=== PATIENT | male | born 1985 | race Caucasian/White ===

== ENCOUNTER 2017-02-06 00:23 | Emergency (ER) | payer SELFPAY ==
[2017-02-06 00:25] VITALS: BP 124/67; PULSE 112; RESP 18; TEMP 98.4; O2SAT 100
== END 2017-02-06 00:38 | disposition left against medical advice (07) ==
LOC: NED 00:23
DX: Z00.8 Encounter for other general examination (principal); Z53.21 Procedure and treatment not carried out due to patient leaving prior to being seen by health care provider
CPT/HCPCS: 99281

== ENCOUNTER 2017-02-20 19:51 | Emergency (ER) | payer SELFPAY ==
[2017-02-20 20:03] VITALS: BP 135/95; PULSE 111; RESP 16; TEMP 98.9; O2SAT 100
[2017-02-20] MEDS ORDERED: SODIUM CHLOR 0.9% 1000 ML INJ 1,000 ML IV SCH (20:03)
--- NOTE | 2017-02-20 20:07 | PD ---
HPI Chief Complaint: Alcohol/Drug Intoxication Time Seen by Provider: 20:02 Travel History International Travel<30 days: No Contact w/Intl Traveler<30days: No History of Present Illness HPI Patient comes emergency Department after being found intoxicated in a [employer] parking lot. Patient states he drinks approximately a liter of vodka a day. Patient is wanting detox. Patient states he is gone through detox 4 times last time was 8 months ago and he keeps relapsing. Patient only medical complaint is he states his pancreas hurts and feels similar to previous episodes of pancreatitis in the past. Denies anything making symptoms better or worse. Reports pain is in epigastric region without radiation. Denies any fevers, chest pain, shortness of breath, loss or change in bowel or bladder, vomiting, or headaches. Patient does report nausea. PFSH Past Medical History Autoimmune Disease: No Anxiety: No Depression: Yes Heart Rhythm Problems: Yes (SINUS ARRHYTHMIA, WPW PER PT) Chemotherapy: No COPD: Yes Cerebrovascular Accident: Yes Diabetes: No Diminished Hearing: No Endocrine: No Genitourinary: Yes Hepatitis: Yes (HEP C) Heparin Induced Thrombocytopen: No Hypertension: No Immune Disorder: No Implanted Vascular Access Dvce: Yes Kidney Stones: Yes Musculoskeletal: No Neurologic: Yes Reproductive: No Respiratory: Yes (COPD) Migraines: Yes Radiation Therapy: No Renal Failure: No Seizures: Yes (ETOH WITHDRAWL) Sickle Cell Disease: No Past Surgical History AICD: No Cardiac Surgery: No Genitourinary Surgery: Yes (VARICOCELE) Gynecologic Surgery: Yes (TESTICLES) Joint Replacement: No Neurologic Surgery: No Pacemaker: No Tonsillectomy: Yes Other Surgery: Yes (ANAL ABSCESS) Social History Alcohol Use: Yes (DAILY USE PER PT) Tobacco Use: Yes (1-2 BLACK AND MILDS DAILY) Substance Use: Yes (ALCOHOL, COCAINE, MARIJUANA PER PT) Allergies-Medications (Allergen,Severity, Reaction): Coded Allergies: bee venom protein (honey bee) (Unverified Allergy, Severe, Swelling, ) hydrocodone (Unverified Allergy, Severe, RASH, 11/12/16) promethazine (Unverified Adverse Reaction, Severe, HALLUCINATIONS, 11/12/16 ) Reported Meds & Prescriptions Reported Meds & Active Scripts Active Prilosec (Omeprazole Magnesium) 20 Mg Tab 20 Mg PO DAILY Reported Keppra (Levetiracetam) 500 Mg Tab 500 Mg PO BID Neurontin (Gabapentin) 400 Mg Cap 400 Mg PO BID Review of Systems Except as stated in HPI: all other systems reviewed are Neg Physical Exam Narrative GENERAL: Well-developed, well nourished, in no acute distress, and non-ill appearing. SKIN: Focused skin assessment warm and dry. HEAD: Atraumatic. Normocephalic. EYES: Pupils equal and round. EOMI. No scleral icterus. No injection or drainage. ENT: No nasal bleeding or discharge. Mucous membranes pink and moist, but lips are dry. NECK: Trachea midline. Supple. No nuclear rigidity. CARDIOVASCULAR: Regular rate and rhythm. No murmur appreciated. RESPIRATORY: No accessory muscle use. No respiratory distress. Clear to auscultation. Breath sounds equal bilaterally. GASTROINTESTINAL: Abdomen soft, nondistended, and no guarding. Hepatic and splenic margins not palpable. Normal bowel sounds 4. No pulsatile mass. Patient reports tenderness to palpation epigastric region. MUSCULOSKELETAL: No obvious deformities. No clubbing. No cyanosis. No edema. Full range of motion. NEUROLOGICAL: Awake and alert. No obvious cranial nerve deficits. Motor grossly within normal limits. Normal speech. PSYCHIATRIC: Appropriate mood and affect; insight and judgment normal. Data Data Last Documented VS Vital Signs Date Time Temp Pulse Resp B/P (MAP) Pulse Ox O2 Delivery O2 Flow Rate FiO2 02/21/17 16:29 92 16 98 02/21/17 11:27 Room Air 02/21/17 03:10 2.00 02/20/17 20:03 98.9 Orders Orders Complete Blood Count With Diff (02/20/17 20:03) Comprehensive Metabolic Panel (02/20/17 20:03) Lipase (02/20/17 20:03) Iv Access Insert/Monitor (02/20/17 20:03) Ecg Monitoring (02/20/17 20:03) Oximetry (02/20/17 20:03) Ondansetron Inj (Zofran Inj) (02/20/17 20:15) Sodium Chlor 0.9% 1000 Ml Inj (Ns 1000 M (02/20/17 20:03) Sodium Chloride 0.9% Flush (Ns Flush) (02/20/17 20:15) Drug Screen, Random Urine (02/20/17 20:03) Alcohol (Ethanol) (02/20/17 20:03) Famotidine Inj (Pepcid Inj) (02/20/17 20:15) Pantoprazole Inj (Protonix Inj) (02/20/17 21:30) Al-Mag Hy-Si 40-40-4 Mg/Ml Liq (Mag-Al P (02/20/17 21:30) Lidocaine 2% Viscous (Xylocaine 2% Visco (02/20/17 21:30) Sodium Chlor 0.9% 1000 Ml Inj (Ns 1000 M (02/20/17 22:00) Alcohol Withdrawal Asmt-Ciwa ONCE (02/20/17 23:40) Flumazenil Inj (Romazicon Inj) (02/20/17 23:45) Lorazepam (Ativan) (02/20/17 23:45) Lorazepam Inj (Ativan Inj) (02/20/17 23:45) Lorazepam (Ativan) (02/20/17 23:45) Lorazepam Inj (Ativan Inj) (02/20/17 23:45) Lorazepam Inj (Ativan Inj) (02/20/17 23:45) Lorazepam Inj (Ativan Inj) (02/20/17 23:45) Sodium Chlor 0.9% 1000 Ml Inj (Ns 1000 M (02/20/17 23:45) Ondansetron Inj (Zofran Inj) (02/21/17 05:45) Ondansetron Inj (Zofran Inj) (02/21/17 11:30) Ed Discharge Order (02/21/17 16:32) Labs Laboratory Tests Test 02/20/17 20:17 02/20/17 22:18 White Blood Count 6.1 TH/MM3 Red Blood Count 5.03 MIL/MM3 Hemoglobin 15.2 GM/DL Hematocrit 45.7 % Mean Corpuscular Volume 90.9 FL Mean Corpuscular Hemoglobin 30.3 PG Mean Corpuscular Hemoglobin Concent 33.3 % Red Cell Distribution Width 13.8 % Platelet Count 312 TH/MM3 Mean Platelet Volume 7.6 FL Neutrophils (%) (Auto) 40.9 % Lymphocytes (%) (Auto) 49.6 % Monocytes (%) (Auto) 7.1 % Eosinophils (%) (Auto) 1.1 % Basophils (%) (Auto) 1.3 % Neutrophils # (Auto) 2.5 TH/MM3 Lymphocytes # (Auto) 3.0 TH/MM3 Monocytes # (Auto) 0.4 TH/MM3 Eosinophils # (Auto) 0.1 TH/MM3 Basophils # (Auto) 0.1 TH/MM3 CBC Comment DIFF FINAL Differential Comment Blood Urea Nitrogen 8 MG/DL Creatinine 0.84 MG/DL Random Glucose 125 MG/DL Total Protein 8.8 GM/DL Albumin 4.5 GM/DL Calcium Level 9.0 MG/DL Alkaline Phosphatase 97 U/L Aspartate Amino Transf (AST/SGOT) 56 U/L Alanine Aminotransferase (ALT/SGPT) 56 U/L Total Bilirubin 0.2 MG/DL Sodium Level 142 MEQ/L Potassium Level 3.8 MEQ/L Chloride Level 106 MEQ/L Carbon Dioxide Level 25.1 MEQ/L Anion Gap 11 MEQ/L Estimat Glomerular Filtration Rate 108 ML/MIN Lipase 813 U/L Ethyl Alcohol Level 456 MG/DL Urine Opiates Screen NEG Urine Barbiturates Screen POS Urine Amphetamines Screen NEG Urine Benzodiazepines Screen NEG Urine Cocaine Screen NEG Urine Cannabinoids Screen NEG MDM Medical Decision Making Medical Screen Exam Complete: Yes Emergency Medical Condition: Yes Differential Diagnosis Pancreatitis, gastritis, metabolic disturbance, alcohol intoxication, alcohol abuse, alcohol withdrawal Narrative Course Patient's exam. Initial laboratory studies were ordered. Patient was given IV fluid for hydration and IV Zofran for nausea. Patient was placed on CIWA protocol for withdrawal. RN contacted [facility] who states they will hold a bed for the patient for detox is medically cleared. Patient's labs reviewed shows an elevated lipase is likely from his chronic alcohol abuse. Patient given a total of total of 3 L IV fluid, IV Protonix, IV Pepcid, a GI cocktail improved his symptoms. Epigastric pain is most likely from gastritis due to his alcohol abuse. Patient was transported from emergency department to [facility] for detox. Diagnosis Primary Impression: Alcohol abuse with intoxication Additional Impression: Gastritis due to alcohol without hemorrhage Qualified Codes: K29.20 - Alcoholic gastritis without bleeding Referrals: [facility] Patient Instructions: Abuse of Alcohol (ED), General Instructions Additional Instructions: Follow-up with your primary care physician and/or [facility] for detox. Stop drinking. Take all medication as prescribed. Return to the emergency department if symptoms get worse. Med/Other Pt SpecificInfo: Prescription(s) given Scripts Omeprazole Magnesium (Prilosec) 20 Mg Tab 20 MG PO DAILY, #14 Prov: Shine Tavares MD 02/20/17 Disposition: 01 DISCHARGE HOME Condition: Stable Carl Rondon Feb 20, 2017 20:07
[2017-02-20] MEDS ORDERED: FAMOTIDINE 20 MG/2 ML VIAL IV PUSH ONE (20:15)
[2017-02-20] MEDS ORDERED: ONDANSETRON HCL 4 MG/2 ML VIAL IVP ONE (20:15)
[2017-02-20] MEDS ORDERED: SODIUM CHLORIDE 0.9% FLUSH 10 ML FLUSH IV FLUSH PRN (20:15)
[2017-02-20 20:25] VITALS: O2SAT 100
[2017-02-20 20:31] LABS: AUTOMATED NEUTROPHIL # 2.5 TH/MM3 (1.8-7.7); BASOPHIL # 0.1 TH/MM3 (0-0.2); BASOPHIL % 1.3 % (0.0-2.0); EOSINOPHIL # 0.1 TH/MM3 (0-0.4); EOSINOPHIL % 1.1 % (0.0-4.0); HEMATOCRIT 45.7 % (39.0-51.0); HEMO FLAGS DIFF FINAL; LYMPH % 49.6 % (9.0-44.0); MEAN CELL VOLUME 90.9 FL (80.0-100.0); MEAN CORPUSCULAR HEMOGLOBIN 30.3 PG (27.0-34.0); MEAN CORPUSCULAR HGB CONC 33.3 % (32.0-36.0); MONO % 7.1 % (0.0-8.0); NEUT % 40.9 % (16.0-70.0); PLATELET COUNT 312 TH/MM3 (150-450); RED BLOOD COUNT 5.03 MIL/MM3 (4.50-5.90); RED CELL DISTRIBUTION WIDTH 13.8 % (11.6-17.2); WHITE BLOOD COUNT 6.1 TH/MM3 (4.0-11.0)
[2017-02-20 20:49] LABS: ANION GAP 11 MEQ/L (5-15)
[2017-02-20 21:14] LABS: ALKALINE PHOSPHATASE 97 U/L (45-117); ALT (GPT) 56 U/L (12-78); AST (GOT) 56 U/L (15-37); BICARBONATE 25.1 MEQ/L (21.0-32.0); BLOOD UREA NITROGEN 8 MG/DL (7-18); CHLORIDE 106 MEQ/L (98-107); GLOMERULAR FILTRATION RATE 108 ML/MIN (>89); POTASSIUM 3.8 MEQ/L (3.5-5.1); SODIUM (NA) 142 MEQ/L (136-145); TOTAL BILIRUBIN ADULT 0.2 MG/DL (0.2-1.0)
[2017-02-20 21:15] LABS: ALCOHOL 456 MG/DL (0-5)
[2017-02-20] MEDS ORDERED: LIDOCAINE VISCOUS 2% SOLN 15 ML UDC PO ONE (21:30)
[2017-02-20] MEDS ORDERED: PANTOPRAZOLE SODIUM 40 MG VIAL IVP ONE (21:30)
[2017-02-20] MEDS ORDERED: ALUMINUM/MAGNESIUM/SIMETH 30 ML CUP PO ONE (21:30)
[2017-02-20] MEDS ORDERED: SODIUM CHLOR 0.9% 1000 ML INJ 1,000 ML IV ONE ×2 (22:00→23:45)
[2017-02-20] MEDS ORDERED: PRIL20TA2 PO (22:01)
[2017-02-20] MEDS ORDERED: FLUMAZENIL 0.5 MG/5 ML VIAL IV PUSH PRN (23:45)
[2017-02-20] MEDS ORDERED: LORazepam 2 MG TAB PO PRN (23:45)
[2017-02-20] MEDS ORDERED: LORazepam 2 MG/ML VIAL IV PUSH PRN ×3 (23:45)
[2017-02-20] MEDS ORDERED: LORazepam 1 MG TAB PO PRN (23:45)
[2017-02-20 23:48] VITALS: BP 157/92; PULSE 102; RESP 20; O2SAT 100
[2017-02-20] MEDS ORDERED: LEVE500 PO (23:50)
[2017-02-20] MEDS ORDERED: NEUR400C PO (23:50)
[2017-02-21] VITALS (7 sets, daily range): BP systolic 110–151; BP diastolic 55–83; PULSE 95–109; RESP 16–20; O2SAT 90–98
[2017-02-21] MEDS ORDERED: ONDANSETRON HCL 4 MG/2 ML VIAL IV PUSH ONE ×2 (05:45→11:30)
[2017-02-21] MEDS: LORazepam 2 MG/ML VIAL IV PUSH PRN ×3 (05:52→11:20)
== END 2017-02-21 16:50 | disposition home or self-care (01) ==
LOC: NEPD 19:51
DX: F10.129 Alcohol abuse with intoxication, unspecified (principal); K29.20 Alcoholic gastritis without bleeding; J44.9 Chronic obstructive pulmonary disease, unspecified; F32.9 Major depressive disorder, single episode, unspecified; R56.9 Unspecified convulsions; Z87.442 Personal history of urinary calculi; Z86.19 Personal history of other infectious and parasitic diseases; Z86.73 Personal history of transient ischemic attack (TIA), and cerebral infarction without residual deficits; Z79.899 Other long term (current) drug therapy
CPT/HCPCS: 80053; 80307; 83690; 85025; 96361; 96374; 96375; 96376; 99285; C9113; J2060; J2405; J7030

== ENCOUNTER 2017-05-14 15:59 | Emergency (ER) | payer SELFPAY ==
[~2017-05-14] VITALS: Ht 185.4 cm; Wt 70.0 kg
[~2017-05-14 15:59] MED LIST: LEVE500 PO; NEUR400C PO; PRIL20TA2 PO
[2017-05-14 16:01] VITALS: BP 139/94; PULSE 98; RESP 16; TEMP 98.8; O2SAT 99
--- NOTE | 2017-05-14 16:58 | RADRPT ---
EXAM DATE/TIME: 05/14/2017 16:46 [facility] COMPARISON: No previous studies available for comparison. INDICATIONS : Left wrist pain, injured hitting punching bag MEDICAL HISTORY : Cerebrovascular disease. Chronic obstructive pulmonary disease. Emphysema SURGICAL HISTORY : Tonsillectomy. Testicle variocele. Anal abscess surgery ENCOUNTER: Initial ACUITY: 2 days PAIN SCORE: 8/10 LOCATION: Left Wrist FINDINGS: Three view examination of the left wrist demonstrates no soft tissue swelling, dislocation, or fractu re. The carpal bones are in normal alignment. The joint spaces are maintained. Bony mineralization is normal. CONCLUSION: Unremarkable examination of the left wrist. Mario Nair MD on May 14, 2017 at 16:55 Board Certified Radiologist. This report was verified electronically.
[2017-05-14] MEDS ORDERED: DICL75TA PO (17:24)
--- NOTE | 2017-05-14 17:30 | PD ---
HPI Chief Complaint: Injury Time Seen by Provider: 17:17 Travel History International Travel<30 days: No Contact w/Intl Traveler<30days: No Traveled to known affect area: No History of Present Illness HPI 31-year-old male here for evaluation of left wrist pain. He reports that yesterday he punched a punching bag and today he has pain in his left wrist. Pain is an aching pain, constant, worse with movement. Denies any other injuries and has no other complaints at this time. PFSH Past Medical History Autoimmune Disease: No Anxiety: No Depression: Yes Heart Rhythm Problems: Yes (SINUS ARRHYTHMIA, WPW PER PT) Chemotherapy: No COPD: Yes Cerebrovascular Accident: Yes Diabetes: No Diminished Hearing: No Endocrine: No Genitourinary: Yes Hepatitis: Yes (HEP C) Heparin Induced Thrombocytopen: No Hypertension: No Immune Disorder: No Implanted Vascular Access Dvce: Yes Kidney Stones: Yes Musculoskeletal: No Neurologic: Yes Reproductive: No Respiratory: Yes (COPD) Migraines: Yes Radiation Therapy: No Renal Failure: No Seizures: Yes (ETOH WITHDRAWL) Sickle Cell Disease: No Past Surgical History AICD: No Body Medical Devices: JEWELRY PIERCING CHIN AREA BELOW R LOWER LIP Cardiac Surgery: No Genitourinary Surgery: Yes (VARICOCELE) Gynecologic Surgery: Yes (TESTICLES) Joint Replacement: No Neurologic Surgery: No Pacemaker: No Tonsillectomy: Yes Other Surgery: Yes (ANAL ABSCESS) Social History Alcohol Use: Yes (DAILY USE PER PT) Tobacco Use: Yes (1-2 BLACK AND MILDS DAILY) Substance Use: Yes (ALCOHOL, COCAINE, MARIJUANA PER PT) Allergies-Medications (Allergen,Severity, Reaction): Coded Allergies: bee venom protein (honey bee) (Unverified Allergy, Severe, Swelling, ) hydrocodone (Unverified Allergy, Severe, RASH, 05/14/17) promethazine (Unverified Adverse Reaction, Severe, HALLUCINATIONS, 05/14/17 ) Reported Meds & Prescriptions Reported Meds & Active Scripts Active Diclofenac Sodium DR (Diclofenac Sodium) 75 Mg Tabdr 75 Mg PO BID 14 Days Prilosec (Omeprazole Magnesium) 20 Mg Tab 20 Mg PO DAILY Reported Keppra (Levetiracetam) 500 Mg Tab 500 Mg PO BID Neurontin (Gabapentin) 400 Mg Cap 400 Mg PO BID Review of Systems Musculoskeletal: Positive: Limited ROM, Pain Skin: Positive Other (denies open wounds) Physical Exam Narrative GENERAL: Well-nourished male in no acute distress SKIN: Warm and dry. CARDIOVASCULAR: Regular rate and rhythm. No murmur appreciated. RESPIRATORY: No accessory muscle use. Clear to auscultation. Breath sounds equal bilaterally. Extremities: Generalized mild tenderness to palpation of left wrist. There is no bruising or soft tissue swelling. The patient has pain with flexion and extension of the left wrist but range of motion is preserved. Distal sensation , pulses intact. Data Data Last Documented VS Vital Signs Date Time Temp Pulse Resp B/P (MAP) Pulse Ox O2 Delivery O2 Flow Rate FiO2 05/14/17 16:01 98.8 98 16 139/94 (109) 99 Orders Orders Wrist, Complete (Aru2czr) (05/14/17 ) Splint Or Brace Apply/Monitor (05/14/17 17:24) Ed Discharge Order (05/14/17 17:24) [facility] Medical Decision Making Medical Screen Exam Complete: Yes Emergency Medical Condition: Yes Medical Record Reviewed: Yes Differential Diagnosis Sprain, fracture, contusion, dislocation Narrative Course X-ray imaging is negative. The patient has a wrist sprain. He will be discharged with a Velcro wrist splint. Diagnosis Primary Impression: Left wrist sprain Additional Instructions: Medication as needed, take with meals. Rest, avoid strenuous activity, splint as needed. Follow-up with primary care physician and return for any emergent medical conditions. Med/Other Pt SpecificInfo: Prescription(s) given, Orthopedic Instructions Scripts Diclofenac Sodium DR (Diclofenac Sodium DR) 75 Mg Tabdr 75 MG PO BID for 14 Days, #28 TAB 0 Refills Prov: Jero Jarquin MD 05/14/17 Disposition: 01 DISCHARGE HOME Condition: Stable Marvin Ellington May 14, 2017 17:29
== END 2017-05-14 17:43 | disposition home or self-care (01) ==
LOC: NEPK 15:59
DX: S63.502A Unspecified sprain of left wrist, initial encounter (principal); J44.9 Chronic obstructive pulmonary disease, unspecified; B19.20 Unspecified viral hepatitis C without hepatic coma; F12.90 Cannabis use, unspecified, uncomplicated; F14.90 Cocaine use, unspecified, uncomplicated; W21.89XA Striking against or struck by other sports equipment, initial encounter
CPT/HCPCS: 73110; 99283; L3908

== ENCOUNTER 2017-08-05 16:06 | Emergency (ER) | payer SELFPAY ==
[~2017-08-05] VITALS: Ht 185.4 cm; Wt 65.0 kg
[~2017-08-05 16:06] MED LIST changes: +DICL75TA PO
[2017-08-05 16:10] VITALS: BP 123/76; PULSE 106; RESP 18; TEMP 98.4; O2SAT 96
[2017-08-05 16:18] VITALS: O2SAT 97
--- NOTE | 2017-08-05 16:25 | PD ---
HPI Chief Complaint: OD/ Ingestion Time Seen by Provider: 16:15 Travel History International Travel<30 days: No Contact w/Intl Traveler<30days: No Traveled to known affect area: No History of Present Illness HPI 31-year-old male complains of generalized malaise and weakness. Patient was found unresponsive outside. Patient states that he snorted methadone and injected heroin this afternoon. Patient was found unresponsive. EMS was called. Patient was given Narcan 1.5 mg IV by EMS. Patient woke up. Patient is feeling better now. Patient denies any headache. Patient denies any chest pain or shortness of breath. Patient denies abdominal pain. Patient denies any focal weakness or numbness of the extremity. Patient denies any recent injury. Patient denies any fever chills. Patient denies any back pain. Patient states he drinks alcohol occasionally. Patient denies any routine medications. Patient denies any medical problem. PFSH Past Medical History Autoimmune Disease: No Anxiety: No Depression: Yes Heart Rhythm Problems: Yes (SINUS ARRHYTHMIA, WPW PER PT) Chemotherapy: No COPD: Yes Cerebrovascular Accident: Yes Diabetes: No Diminished Hearing: No Endocrine: No Genitourinary: Yes Hepatitis: Yes (HEP C) Heparin Induced Thrombocytopen: No Hypertension: No Immune Disorder: No Implanted Vascular Access Dvce: Yes Kidney Stones: Yes Musculoskeletal: No Neurologic: Yes Reproductive: No Respiratory: Yes (COPD) Migraines: Yes Radiation Therapy: No Renal Failure: No Seizures: Yes (ETOH WITHDRAWL) Sickle Cell Disease: No Past Surgical History AICD: No Body Medical Devices: JEWELRY PIERCING CHIN AREA BELOW R LOWER LIP Cardiac Surgery: No Genitourinary Surgery: Yes (VARICOCELE) Gynecologic Surgery: Yes (TESTICLES) Joint Replacement: No Neurologic Surgery: No Pacemaker: No Tonsillectomy: Yes Other Surgery: Yes (ANAL ABSCESS) Social History Alcohol Use: Yes (DAILY USE PER PT) Tobacco Use: Yes (1-2 BLACK AND MILDS DAILY) Substance Use: Yes (ALCOHOL, COCAINE, MARIJUANA PER PT) Allergies-Medications (Allergen,Severity, Reaction): Coded Allergies: bee venom protein (honey bee) (Unverified Allergy, Severe, Swelling, ) hydrocodone (Unverified Allergy, Severe, RASH, 08/05/17) promethazine (Unverified Adverse Reaction, Severe, HALLUCINATIONS, 08/05/17) Reported Meds & Prescriptions Reported Meds & Active Scripts Active Diclofenac Sodium DR (Diclofenac Sodium) 75 Mg Tabdr 75 Mg PO BID 14 Days Prilosec (Omeprazole Magnesium) 20 Mg Tab 20 Mg PO DAILY Reported Keppra (Levetiracetam) 500 Mg Tab 500 Mg PO BID Neurontin (Gabapentin) 400 Mg Cap 400 Mg PO BID Review of Systems General / Constitutional: No: Fever Eyes: No: Visual changes HENT: No: Headaches Cardiovascular: No: Chest Pain or Discomfort Respiratory: No: Shortness of Breath Gastrointestinal: No: Abdominal Pain Genitourinary: No: Dysuria Musculoskeletal: No: Pain Skin: No Rash Neurologic: No: Weakness Psychiatric: No: Depression Endocrine: No: Polydipsia Hematologic/Lymphatic: No: Easy Bruising Physical Exam Narrative GENERAL: Well-nourished, well-developed patient. SKIN: Focused skin assessment warm/dry. HEAD: Normocephalic. EYES: No scleral icterus. No injection or drainage. NECK: Supple, trachea midline. No JVD or lymphadenopathy. CARDIOVASCULAR: Regular rate and rhythm without murmurs, gallops, or rubs. RESPIRATORY: Breath sounds equal bilaterally. No accessory muscle use. GASTROINTESTINAL: Abdomen soft, non-tender, nondistended. MUSCULOSKELETAL: No cyanosis, or edema. BACK: Nontender without obvious deformity. No CVA tenderness. Neurologic exam: Patient is awake and alert oriented 3. No obvious focal neurologic deficit. Data Data Last Documented VS Vital Signs Date Time Temp Pulse Resp B/P (MAP) Pulse Ox O2 Delivery O2 Flow Rate FiO2 08/05/17 16:18 97 Room Air 08/05/17 16:15 103 98 08/05/17 16:10 98.4 123/76 (92) Orders Orders Electrocardiogram (08/05/17 16:16) Complete Blood Count With Diff (08/05/17 16:16) Comprehensive Metabolic Panel (08/05/17 16:16) Creatine Kinase (Cpk) (08/05/17 16:16) Troponin I (08/05/17 16:16) Chest, Single Ap (08/05/17 16:16) Iv Access Insert/Monitor (08/05/17 16:16) Ecg Monitoring (08/05/17 16:16) Oximetry (08/05/17 16:16) Drug Screen, Random Urine (08/05/17 16:16) Ed Discharge Order (08/05/17 18:39) Labs Laboratory Tests Test 08/05/17 16:19 White Blood Count 9.3 TH/MM3 Red Blood Count 4.44 MIL/MM3 Hemoglobin 13.4 GM/DL Hematocrit 39.3 % Mean Corpuscular Volume 88.7 FL Mean Corpuscular Hemoglobin 30.1 PG Mean Corpuscular Hemoglobin Concent 34.0 % Red Cell Distribution Width 13.5 % Platelet Count 293 TH/MM3 Mean Platelet Volume 8.6 FL Neutrophils (%) (Auto) 68.9 % Lymphocytes (%) (Auto) 22.7 % Monocytes (%) (Auto) 5.5 % Eosinophils (%) (Auto) 2.0 % Basophils (%) (Auto) 0.9 % Neutrophils # (Auto) 6.4 TH/MM3 Lymphocytes # (Auto) 2.1 TH/MM3 Monocytes # (Auto) 0.5 TH/MM3 Eosinophils # (Auto) 0.2 TH/MM3 Basophils # (Auto) 0.1 TH/MM3 CBC Comment DIFF FINAL Differential Comment Blood Urea Nitrogen 11 MG/DL Creatinine 0.98 MG/DL Random Glucose 94 MG/DL Total Protein 7.4 GM/DL Albumin 3.8 GM/DL Calcium Level 9.0 MG/DL Alkaline Phosphatase 68 U/L Aspartate Amino Transf (AST/SGOT) 42 U/L Alanine Aminotransferase (ALT/SGPT) 47 U/L Total Bilirubin 0.9 MG/DL Sodium Level 141 MEQ/L Potassium Level 3.7 MEQ/L Chloride Level 105 MEQ/L Carbon Dioxide Level 21.8 MEQ/L Anion Gap 14 MEQ/L Estimat Glomerular Filtration Rate 90 ML/MIN Total Creatine Kinase 79 U/L Troponin I LESS THAN 0.02 NG/ML MDM Medical Decision Making Medical Screen Exam Complete: Yes Emergency Medical Condition: Yes Interpretation(s) 1732 PM. Last Impressions Chest X-Ray 08/05/17 1616 Signed Impressions: Service Date/Time: Saturday, August 05, 2017 16:37 - CONCLUSION: No acute disease. Mario Nair MD 1732 PM. CBC within normal limits. Differential Diagnosis Differential diagnosis including drug overdose, electrolyte imbalance. Narrative Course 31-year-old male was brought in by EMS after opioids overdose. Patient was given Narcan with good results. Diagnosis Primary Impression: Opioid overdose Qualified Codes: T40.2X1A - Poisoning by other opioids, accidental ( unintentional), initial encounter Patient Instructions: General Instructions Additional Instructions: Advised [facility]. Med/Other Pt SpecificInfo: No Meds Exist/No RX given Disposition: 01 DISCHARGE HOME Condition: Stable Jaime Haley MD August 05, 2017 16:25
--- NOTE | 2017-08-05 16:59 | RADRPT ---
EXAM DATE/TIME: 08/05/2017 16:37 [facility] COMPARISON: No previous studies available for comparison. INDICATIONS : Short of breath after overdose. MEDICAL HISTORY : None. SURGICAL HISTORY : None. ENCOUNTER: Initial ACUITY: 1 day PAIN SCORE: 0/10 LOCATION: Bilateral chest FINDINGS: A single view of the chest demonstrates the lungs to be symmetrically aerated without evidence of mas s, infiltrate or effusion. The cardiomediastinal contours are unremarkable. Osseous structures are intact. CONCLUSION: No acute disease. Mario Nair MD on August 05, 2017 at 16:56 Board Certified Radiologist. This report was verified electronically.
[2017-08-05 17:04] LABS: AUTOMATED NEUTROPHIL # 6.4 TH/MM3 (1.8-7.7); BASOPHIL # 0.1 TH/MM3 (0-0.2); BASOPHIL % 0.9 % (0.0-2.0); EOSINOPHIL # 0.2 TH/MM3 (0-0.4); HEMATOCRIT 39.3 % (39.0-51.0); HEMOGLOBIN 13.4 GM/DL (13.0-17.0); LYMPH % 22.7 % (9.0-44.0); LYMPHOCYTE # 2.1 TH/MM3 (1.0-4.8); MEAN CELL VOLUME 88.7 FL (80.0-100.0); MEAN CORPUSCULAR HEMOGLOBIN 30.1 PG (27.0-34.0); MEAN PLATELET VOLUME 8.6 FL (7.0-11.0); MONO % 5.5 % (0.0-8.0); MONOCYTE # 0.5 TH/MM3 (0-0.9); NEUT % 68.9 % (16.0-70.0); PLATELET COUNT 293 TH/MM3 (150-450); RED BLOOD COUNT 4.44 MIL/MM3 (4.50-5.90); RED CELL DISTRIBUTION WIDTH 13.5 % (11.6-17.2); WHITE BLOOD COUNT 9.3 TH/MM3 (4.0-11.0)
[2017-08-05 17:34] LABS: ALT (GPT) 47 U/L (12-78)
[2017-08-05 17:49] LABS: ALBUMIN 3.8 GM/DL (3.4-5.0); ALKALINE PHOSPHATASE 68 U/L (45-117); AST (GOT) 42 U/L (15-37); BICARBONATE 21.8 MEQ/L (21.0-32.0); BLOOD UREA NITROGEN 11 MG/DL (7-18); CHLORIDE 105 MEQ/L (98-107); CREATININE 0.98 MG/DL (0.60-1.30); GLOMERULAR FILTRATION RATE 90 ML/MIN (>89); GLUCOSE,RANDOM 94 MG/DL (74-106); SODIUM (NA) 141 MEQ/L (136-145); TOTAL BILIRUBIN ADULT 0.9 MG/DL (0.2-1.0); TOTAL PROTEIN 7.4 GM/DL (6.4-8.2); TROPONIN I LESS THAN 0.02 NG/ML (0.02-0.05)
[2017-08-05 19:41] VITALS: BP 117/79; PULSE 80; RESP 16; O2SAT 100
--- NOTE | 2017-08-06 19:41 | EKG ---
Date Performed: 08/05/2017 Time Performed: 16:19:26 PTAGE: 31 years EKG: Sinus rhythm POSSIBLE RIGHT VENTRICULAR CONDUCTION DELAY BORDERLINE ECG Since the PREVIOUS TRACING , no significant change noted PREVIOUS TRACIN01/28/2016 19.33 DOCTOR: Hudson Duarte Interpretating Date/Time 08/06/2017 19:39:53
== END 2017-08-05 19:45 | disposition home or self-care (01) ==
LOC: NEPE 16:06
DX: T40.2X1A Poisoning by other opioids, accidental (unintentional), initial encounter (principal)
CPT/HCPCS: 71045; 80053; 82550; 84484; 85025; 93005; 99285

== ENCOUNTER 2017-08-16 17:27 | Emergency (ER) | payer SELFPAY ==
[~2017-08-16] VITALS: Ht 185.4 cm; Wt 68.0 kg
[2017-08-16 17:36] VITALS: BP 123/89; PULSE 100; RESP 16; O2SAT 97
[2017-08-16] MEDS ORDERED: chlordiazePOXIDE 25 MG CAP PO STA (17:56)
[2017-08-16] MEDS ORDERED: SODIUM CHLOR 0.9% 1000 ML INJ 1,000 ML IV ONE (18:00)
--- NOTE | 2017-08-16 19:23 | PD ---
HPI Chief Complaint: Alcohol/Drug Intoxication Time Seen by Provider: 17:38 Travel History International Travel<30 days: No Contact w/Intl Traveler<30days: No Traveled to known affect area: No History of Present Illness HPI Patient is a 31-year-old male who is brought in by EMS after heroin overdose. He says he is an alcoholic and drinks daily. Recently he has started using opiates. He was here 2 weeks ago after an opiate overdose. He says that he felt like he was withdrawing from alcohol today, he went to get some alcohol and then ended up using heroin in the [place] with some people. He denies any chest pain, fever, chills. He was given Narcan by EMS. Currently has no complaints. PFSH Past Medical History Autoimmune Disease: No Anxiety: No Depression: Yes Heart Rhythm Problems: Yes (SINUS ARRHYTHMIA, WPW PER PT) Chemotherapy: No COPD: Yes Cerebrovascular Accident: Yes Diabetes: No Diminished Hearing: No Endocrine: No Genitourinary: Yes Hepatitis: Yes (HEP C) Heparin Induced Thrombocytopen: No Hypertension: No Immune Disorder: No Implanted Vascular Access Dvce: Yes Kidney Stones: Yes Musculoskeletal: No Neurologic: Yes Psychiatric: Yes (IVDU) Reproductive: No Respiratory: Yes (COPD) Migraines: Yes Radiation Therapy: No Renal Failure: No Seizures: Yes (ETOH WITHDRAWL) Sickle Cell Disease: No Influenza Vaccination: No Past Surgical History AICD: No Body Medical Devices: JEWELRY PIERCING CHIN AREA BELOW R LOWER LIP Cardiac Surgery: No Genitourinary Surgery: Yes (VARICOCELE) Gynecologic Surgery: Yes (TESTICLES) Joint Replacement: No Neurologic Surgery: No Pacemaker: No Tonsillectomy: Yes Other Surgery: Yes (ANAL ABSCESS) Social History Alcohol Use: Yes (5th vodka daily) Tobacco Use: Yes (1-2 BLACK AND MILDS DAILY) Substance Use: Yes (HEROIN) Allergies-Medications (Allergen,Severity, Reaction): Coded Allergies: bee venom protein (honey bee) (Unverified Allergy, Severe, Swelling, ) hydrocodone (Unverified Allergy, Severe, RASH, 08/16/17) promethazine (Unverified Adverse Reaction, Severe, HALLUCINATIONS, 08/16/17 ) Reported Meds & Prescriptions Reported Meds & Active Scripts Active No Active Prescriptions or Reported Medications Review of Systems Except as stated in HPI: all other systems reviewed are Neg General / Constitutional: No: Fever, Chills HENT: No: Headaches, Lightheadedness Cardiovascular: No: Chest Pain or Discomfort Respiratory: No: Shortness of Breath Gastrointestinal: No: Nausea, Vomiting, Diarrhea Musculoskeletal: No: Myalgias, Edema Skin: No Rash, No Change in Pigmentation Neurologic: No: Weakness, Dizziness Physical Exam Narrative GENERAL: Awake and alert, no acute distress. SKIN: Focused skin assessment warm/dry. No evidence of infection. HEAD: Atraumatic. Normocephalic. EYES: Pupils equal and round. No scleral icterus. ENT: Tongue fasciculations present. Mucous membranes pink and moist. NECK: Trachea midline. No JVD. CARDIOVASCULAR: Regular rate and rhythm. No murmur appreciated. RESPIRATORY: No accessory muscle use. Clear to auscultation. Breath sounds equal bilaterally. GASTROINTESTINAL: Abdomen soft, non-tender, nondistended. MUSCULOSKELETAL: No obvious deformities. No clubbing. No cyanosis. No edema. NEUROLOGICAL: Awake and alert. No obvious cranial nerve deficits. Motor grossly within normal limits. Normal speech. PSYCHIATRIC: Appropriate mood and affect; insight and judgment normal. Data Data Last Documented VS Vital Signs Date Time Temp Pulse Resp B/P (MAP) Pulse Ox O2 Delivery O2 Flow Rate FiO2 08/16/17 17:36 100 16 123/89 (100) 97 Orders Orders Chlordiazepoxide (Librium) (08/16/17 17:56) Sodium Chlor 0.9% 1000 Ml Inj (Ns 1000 M (08/16/17 18:00) Ed Discharge Order (08/16/17 20:00) [facility] Medical Decision Making Medical Screen Exam Complete: Yes Emergency Medical Condition: Yes Medical Record Reviewed: Yes Differential Diagnosis Overdose versus alcohol intoxication versus withdrawal Narrative Course Patient is a 31-year-old male who comes in after heroin overdose. He was given 2 mg IM Narcan by EMS. Currently he is awake and alert. He denies feeling sick prior to this. He does have some tongue fasciculations and says he feels like he is going through alcohol withdrawal. He is interested in detox. He is observed in the emergency department without any further issues. Given some Librium. Given information about detox facilities. Advised to go to these detox facilities. Diagnosis Primary Impression: Opioid overdose Qualified Codes: T40.2X1A - Poisoning by other opioids, accidental ( unintentional), initial encounter Referrals: [facility] (Out patient) Patient Instructions: General Instructions, Opioid Overdose (ED) Departure Forms: Tests/Procedures Additional Instructions: [facility] [phone]; [facility] [phone] Follow-up for detox. Return as needed for any worsening symptoms. Avoid drug and alcohol use. Scripts No Active Prescriptions or Reported Meds Disposition: 01 DISCHARGE HOME Condition: Stable Osiris Prince MD August 16, 2017 19:23
--- NOTE | 2017-08-16 22:42 | EKG ---
Date Performed: 08/16/2017 Time Performed: 17:43:49 PTAGE: 31 years EKG: Sinus rhythm POSSIBLE RIGHT VENTRICULAR CONDUCTION DELAY NORMAL ECG PREVIOUS TRACING : 08/05/2017 16.19 No significant change from previous tracing noted. DOCTOR: Grabiel Tracy Interpretating Date/Time 08/16/2017 22:41:02
== END 2017-08-16 21:39 | disposition home or self-care (01) ==
LOC: NEPE 17:27
DX: T40.1X1A Poisoning by heroin, accidental (unintentional), initial encounter (principal); F10.239 Alcohol dependence with withdrawal, unspecified; F32.9 Major depressive disorder, single episode, unspecified; J44.9 Chronic obstructive pulmonary disease, unspecified; B19.20 Unspecified viral hepatitis C without hepatic coma; Z86.73 Personal history of transient ischemic attack (TIA), and cerebral infarction without residual deficits; Z72.0 Tobacco use
CPT/HCPCS: 93005; 96360; 96361; 99284; J7030

== ENCOUNTER 2017-08-20 20:55 | Emergency (ER) | payer SELFPAY ==
[~2017-08-20] VITALS: Ht 177.8 cm; Wt 76.0 kg
[2017-08-20 20:56] VITALS: BP 114/63; PULSE 113; RESP 12; TEMP 97.4; O2SAT 100
--- NOTE | 2017-08-20 20:58 | PD ---
HPI . unresponsive Chief Complaint: unresponsive Time Seen by Provider: 20:57 Travel History International Travel<30 days: No Contact w/Intl Traveler<30days: No Traveled to known affect area: No (unknown overdose) History of Present Illness HPI Patient is brought to ambulance walk-in by friends patient is obtunded decreased respiration known history of heroin abuse has been in the ER with the same in the past patient is brought to the exam room IV is put into his right hand dorsum 2 mg of Narcan is pushed and he wakes his sat was 96 on arrival we sternal rub him to make him breathe and then the Narcan walking light up he is now awake breathing satting 100% 2 L nasal cannula will be observed for 4 hours PFSH Past Medical History Autoimmune Disease: No Anxiety: No Depression: Yes Heart Rhythm Problems: Yes (SINUS ARRHYTHMIA, WPW PER PT) Chemotherapy: No COPD: Yes Cerebrovascular Accident: Yes Diabetes: No Diminished Hearing: No Endocrine: No Genitourinary: Yes Hepatitis: Yes (HEP C) Heparin Induced Thrombocytopen: No Hypertension: No Immune Disorder: No Implanted Vascular Access Dvce: Yes Kidney Stones: Yes Musculoskeletal: No Neurologic: Yes Psychiatric: Yes (IVDU) Reproductive: No Respiratory: Yes (COPD) Migraines: Yes Radiation Therapy: No Renal Failure: No Seizures: Yes (ETOH WITHDRAWL) Sickle Cell Disease: No Past Surgical History AICD: No Body Medical Devices: JEWELRY PIERCING CHIN AREA BELOW R LOWER LIP Cardiac Surgery: No Genitourinary Surgery: Yes (VARICOCELE) Gynecologic Surgery: Yes (TESTICLES) Joint Replacement: No Neurologic Surgery: No Pacemaker: No Tonsillectomy: Yes Other Surgery: Yes (ANAL ABSCESS) Social History Alcohol Use: Yes (5th vodka daily) Tobacco Use: Yes (1-2 BLACK AND MILDS DAILY) Substance Use: Yes (HEROIN) Allergies-Medications (Allergen,Severity, Reaction): Coded Allergies: bee venom protein (honey bee) (Unverified Allergy, Severe, Swelling, ) hydrocodone (Unverified Allergy, Severe, RASH, 08/16/17) promethazine (Unverified Adverse Reaction, Severe, HALLUCINATIONS, 08/16/17 ) Reported Meds & Prescriptions Reported Meds & Active Scripts Active No Active Prescriptions or Reported Medications Review of Systems Except as stated in HPI: all other systems reviewed are Neg Physical Exam Narrative GENERAL: Patient is somnolent unresponsive but when sternal rub he wakes up his satting is 96 IV is placed pushed 2 mg Narcan he is then wide awake satting 100% SKIN: Warm and dry. HEAD: Atraumatic. Normocephalic. EYES: Pupils equal and round. No scleral icterus. No injection or drainage. ENT: No nasal bleeding or discharge. Mucous membranes pink and moist. NECK: Trachea midline. No JVD. CARDIOVASCULAR: Regular rate and rhythm. RESPIRATORY: No accessory muscle use. Clear to auscultation. Breath sounds equal bilaterally. GASTROINTESTINAL: Abdomen soft, non-tender, nondistended. Hepatic and splenic margins not palpable. MUSCULOSKELETAL: Extremities without clubbing, cyanosis, or edema. No obvious deformities. NEUROLOGICAL: Awake and alert. No obvious cranial nerve deficits. Motor grossly within normal limits. Five out of 5 muscle strength in the arms and legs. Normal speech. PSYCHIATRIC: Appropriate mood and affect; insight and judgment normal. Data Data Last Documented VS Vital Signs Date Time Temp Pulse Resp B/P (MAP) Pulse Ox O2 Delivery O2 Flow Rate FiO2 08/21/17 10:55 98.4 70 16 124/68 (86) 97 08/21/17 10:55 Room Air Orders Orders Electrocardiogram (08/20/17 20:59) Psych Screen (08/21/17 01:16) Ed Discharge Order (08/21/17 11:43) MDM Medical Decision Making Medical Screen Exam Complete: Yes Emergency Medical Condition: Yes Differential Diagnosis heroin overdose vs fentanyl overdose vs polysubstance other co ingestion Narrative Course pt after Narcan is awke and resp rate 12 and O2 sat 96% on RA Diagnosis Primary Impression: Opioid overdose Scripts No Active Prescriptions or Reported Meds Khoi Camp MD August 20, 2017 20:58
[2017-08-20 23:21] VITALS: BP 104/85; PULSE 84; RESP 16; O2SAT 95
[2017-08-21 02:00] VITALS: BP 101/57; PULSE 66; RESP 16; O2SAT 99
[2017-08-21 04:00] VITALS: BP 103/57; PULSE 60; RESP 16; O2SAT 98
[2017-08-21 10:55] VITALS: BP 124/68; PULSE 70; RESP 16; TEMP 98.4; O2SAT 97
--- NOTE | 2017-08-21 11:43 | PD ---
Physical Exam Date Seen by Provider: August 21, 2017 Time Seen by Provider: 11:41 Narrative 31-year-old male previously brought in intoxicated, and medically cleared, is now alert and oriented 3 and medically stable for discharge. Recommend follow- up with Baljeet Krause regarding substance abuse Data Data Last Documented VS Vital Signs Date Time Temp Pulse Resp B/P (MAP) Pulse Ox O2 Delivery O2 Flow Rate FiO2 08/21/17 10:55 98.4 70 16 124/68 (86) 97 08/21/17 10:55 Room Air Orders Orders Electrocardiogram (08/20/17 20:59) Psych Screen (08/21/17 01:16) MDM Medical Record Reviewed: Yes Supervised Visit with TK: Yes Narrative Course 31-year-old male previously brought in intoxicated, and medically cleared, is now alert and oriented 3 and medically stable for discharge. Recommend follow- up with Baljeet Krause regarding substance abuse Diagnosis Primary Impression: Polysubstance abuse Referrals: [facility] Patient Instructions: General Instructions Scripts No Active Prescriptions or Reported Meds Disposition: DISCHARGE HOME Condition: Stable Capo Guthrie August 21, 2017 11:43
--- NOTE | 2017-08-21 19:35 | EKG ---
Date Performed: 08/20/2017 Time Performed: 20:59:18 PTAGE: 31 years EKG: SINUS TACHYCARDIA INCOMPLETE RIGHT BUNDLE BRANCH BLOCK MODERATE VOLTAGE CRITERIA FOR LVH, C ONSIDER NORMAL VARIANT ABNORMAL RHYTHM ECG Compared to PREVIOUS TRACING , the patient is now tachycardic. PREVIOUS TRACIN08/16/2017 17.43 DOCTOR: Kaitlin Castillo Interpretating Date/Time 08/21/2017 19:33:50
== END 2017-08-21 12:06 | disposition home or self-care (01) ==
LOC: NEPE 20:55 → NEDAMB 08-21 12:06
DX: T40.1X1A Poisoning by heroin, accidental (unintentional), initial encounter (principal); R00.0 Tachycardia, unspecified; I45.10 Unspecified right bundle-branch block; R94.31 Abnormal electrocardiogram [ECG] [EKG]; J44.9 Chronic obstructive pulmonary disease, unspecified; Z86.73 Personal history of transient ischemic attack (TIA), and cerebral infarction without residual deficits; Z86.19 Personal history of other infectious and parasitic diseases; Z87.442 Personal history of urinary calculi; Z86.69 Personal history of other diseases of the nervous system and sense organs
CPT/HCPCS: 93005; 99283

== ENCOUNTER 2017-09-05 17:55 | Emergency (ER) | payer SELFPAY ==
[~2017-09-05] VITALS: Ht 188 cm; Wt 70.0 kg
[2017-09-05 17:59] VITALS: BP 115/83; PULSE 101; RESP 26; O2SAT 98
--- NOTE | 2017-09-05 18:04 | PD ---
HPI Chief Complaint: Unresponsive Time Seen by Provider: 17:59 Travel History International Travel<30 days: No Contact w/Intl Traveler<30days: No Traveled to known affect area: No History of Present Illness HPI Patient was found unresponsive, 911 was called and person near him described that he had used heroin. EVAC started on IV left EJ and gave him 0.4 of Narcan which produced responsiveness patient became aware and awake. EVAC in route so some shaking activity and thought that it was seizures so the patient was given 4 mg of Versed in route as well. Patient is not complaining of feeling terrible nauseous and pain to his head to his body to his wrist left wrist to his legs to his arms really there is no area that has been spared by this patient's feeling pain. However of note this patient generalized pain is most likely secondary to the withdrawal from Narcan use Per chart review the patient has allergies to promethazine and hydrocodone Past medical history significant for tonsillectomy, alcohol withdrawal seizures , migraine, sinus arrhythmia questionable WPW per patient, COPD, emphysema, kidney stones, hepatitis C and IV drug use PFSH Past Medical History Autoimmune Disease: No Anxiety: No Depression: Yes Heart Rhythm Problems: Yes (SINUS ARRHYTHMIA, WPW PER PT) Chemotherapy: No COPD: Yes Cerebrovascular Accident: Yes Diabetes: No Diminished Hearing: No Endocrine: No Genitourinary: Yes Hepatitis: Yes (HEP C) Heparin Induced Thrombocytopen: No Hypertension: No Immune Disorder: No Implanted Vascular Access Dvce: Yes Kidney Stones: Yes Musculoskeletal: No Neurologic: Yes Psychiatric: Yes (IVDU) Reproductive: No Respiratory: Yes (COPD) Migraines: Yes Radiation Therapy: No Renal Failure: No Seizures: Yes (ETOH WITHDRAWL) Sickle Cell Disease: No Past Surgical History AICD: No Body Medical Devices: JEWELRY PIERCING CHIN AREA BELOW R LOWER LIP Cardiac Surgery: No Genitourinary Surgery: Yes (VARICOCELE) Gynecologic Surgery: Yes (TESTICLES) Joint Replacement: No Neurologic Surgery: No Pacemaker: No Tonsillectomy: Yes Other Surgery: Yes (ANAL ABSCESS) Social History Alcohol Use: Yes (5th vodka daily) Tobacco Use: Yes (1-2 BLACK AND MILDS DAILY) Substance Use: Yes (HEROIN) Allergies-Medications (Allergen,Severity, Reaction): Coded Allergies: bee venom protein (honey bee) (Unverified Allergy, Severe, Swelling, ) hydrocodone (Unverified Allergy, Severe, RASH, 08/16/17) promethazine (Unverified Adverse Reaction, Severe, HALLUCINATIONS, 08/16/17 ) Reported Meds & Prescriptions Reported Meds & Active Scripts Active No Active Prescriptions or Reported Medications Review of Systems ROS Limitations: Intoxication, Unresponsive General / Constitutional: No: Fever Eyes: No: Visual changes HENT: No: Headaches Cardiovascular: No: Chest Pain or Discomfort Respiratory: No: Shortness of Breath Gastrointestinal: No: Abdominal Pain Genitourinary: No: Dysuria Musculoskeletal: No: Pain Skin: No Rash Neurologic: No: Weakness Psychiatric: No: Depression Endocrine: No: Polydipsia Hematologic/Lymphatic: No: Easy Bruising Physical Exam Narrative GENERAL: SKIN: Warm and dry. HEAD: Atraumatic. Normocephalic. EYES: Pupils equal and round. No scleral icterus. No injection or drainage. ENT: No nasal bleeding or discharge. Mucous membranes pink and moist. NECK: Trachea midline. No JVD. CARDIOVASCULAR: Regular rhythm, tachycardic rate RESPIRATORY: No accessory muscle use. Clear to auscultation. Breath sounds equal bilaterally. GASTROINTESTINAL: Abdomen soft, non-tender, nondistended. MUSCULOSKELETAL: Extremities without clubbing, cyanosis, or edema. No obvious deformities. NEUROLOGICAL: Awake and alert. No obvious cranial nerve deficits. Motor grossly within normal limits. Five out of 5 muscle strength in the arms and legs. Normal speech. PSYCHIATRIC: Appropriate mood and affect; insight and judgment normal. Data Data Last Documented VS Vital Signs Date Time Temp Pulse Resp B/P (MAP) Pulse Ox O2 Delivery O2 Flow Rate FiO2 09/05/17 18:08 Room Air 09/05/17 17:59 101 26 115/83 (94) 98 Orders Orders Complete Blood Count With Diff (09/05/17 18:05) Comprehensive Metabolic Panel (09/05/17 18:05) Ckmb (Isoenzyme) Profile (09/05/17 18:05) Troponin I (09/05/17 18:05) B-Type Natriuretic Peptide (09/05/17 18:05) Lipase (09/05/17 18:05) Urinalysis - C+S If Indicated (09/05/17 18:05) Thyroid Stimulating Hormone (09/05/17 18:05) Chest, Single Ap (09/05/17 18:05) Iv Access Insert/Monitor (09/05/17 18:05) Ecg Monitoring (09/05/17 18:05) Oximetry (09/05/17 18:05) Drug Screen, Random Urine (09/05/17 18:05) Alcohol (Ethanol) (09/05/17 18:05) Salicylates (Aspirin) (09/05/17 18:05) Tylenol (Acetaminophen) (09/05/17 18:05) Ct Brain W/O Iv Contrast(Rout) (09/05/17 18:05) Wrist, Limited (Ap&Lat) (09/05/17 ) Labs Laboratory Tests Test 09/05/17 18:23 White Blood Count 12.1 TH/MM3 Red Blood Count 4.79 MIL/MM3 Hemoglobin 14.8 GM/DL Hematocrit 44.5 % Mean Corpuscular Volume 92.9 FL Mean Corpuscular Hemoglobin 30.8 PG Mean Corpuscular Hemoglobin Concent 33.2 % Red Cell Distribution Width 14.5 % Platelet Count 230 TH/MM3 Mean Platelet Volume 8.5 FL Neutrophils (%) (Auto) 78.4 % Lymphocytes (%) (Auto) 15.2 % Monocytes (%) (Auto) 4.7 % Eosinophils (%) (Auto) 1.2 % Basophils (%) (Auto) 0.5 % Neutrophils # (Auto) 9.5 TH/MM3 Lymphocytes # (Auto) 1.8 TH/MM3 Monocytes # (Auto) 0.6 TH/MM3 Eosinophils # (Auto) 0.1 TH/MM3 Basophils # (Auto) 0.1 TH/MM3 CBC Comment DIFF FINAL Differential Comment Blood Urea Nitrogen 8 MG/DL Creatinine 1.41 MG/DL Random Glucose 178 MG/DL Total Protein 8.7 GM/DL Albumin 4.4 GM/DL Calcium Level 8.9 MG/DL Alkaline Phosphatase 88 U/L Aspartate Amino Transf (AST/SGOT) 42 U/L Alanine Aminotransferase (ALT/SGPT) 50 U/L Total Bilirubin 0.3 MG/DL Sodium Level 139 MEQ/L Potassium Level 4.0 MEQ/L Chloride Level 103 MEQ/L Carbon Dioxide Level 24.4 MEQ/L Anion Gap 12 MEQ/L Estimat Glomerular Filtration Rate 59 ML/MIN Total Creatine Kinase 100 U/L Troponin I LESS THAN 0.02 NG/ML Lipase 325 U/L Thyroid Stimulating Hormone 3rd Gen 1.950 uIU/ML Acetaminophen Level LESS THAN 2.0 MCG/ML Ethyl Alcohol Level 267 MG/DL MDM Medical Decision Making Medical Screen Exam Complete: Yes Emergency Medical Condition: Yes Medical Record Reviewed: Yes Differential Diagnosis Polysubstance abuse versus intracranial hemorrhage versus sinus infection versus electrolyte imbalance versus anemia versus dehydration Narrative Course CBC surface reactive leukocytosis of 12,000, no anemia, normal platelet count, no evidence of any left shift Toxicology negative for Tylenol, positive alcohol level 267 Patient already admitted to using heroin Electrolytes are all within normal limits, with the exception of a random glucose of 178, normal liver enzymes, normal pancreatic enzymes, normal TSH screening Chest x-ray read as lungs are clear by radiologist Head CT read by radiologist as no acute intracranial abnormalities Wrist x-ray read by radiologist as no acute findings All findings discussed with patient and fianc Patient released to his fiance who was at the bedside Diagnosis Primary Impression: Opioid overdose Qualified Codes: T40.2X1A - Poisoning by other opioids, accidental ( unintentional), initial encounter Additional Impression: Alcohol intoxication Referrals: [facility] For further assistance with your attempted detox Patient Instructions: Alcohol Intoxication (DC), General Instructions, Opioid Overdose (DC) Scripts No Active Prescriptions or Reported Meds Disposition: 01 DISCHARGE HOME Condition: Stable Jarrett Goff MD Sep 05, 2017 18:03
--- NOTE | 2017-09-05 18:44 | RADRPT ---
EXAM DATE: 09/05/2017 6:33 PM EDT AGE/SEX: 31 years / Male INDICATIONS: S/P unresponsive, reversed with Narcan. CLINICAL DATA: This is the patient's initial encounter. Patient reports that signs and symptoms have been present for 1 day and indicates a pain score of Nonresponsive. MEDICAL/SURGICAL HISTORY: None. None. COMPARISON: [facility] – [place] SING[place] AP, 08/05/2017. . FINDINGS: A single AP view of the chest demonstrates the lungs to be symmetrically aerated without evidence of mass, infiltrate or effusion. No evidence of pneumothorax. The cardiomediastinal contours are unrema rkable. Osseous structures are intact. CONCLUSION: The lungs are clear. Electronically signed by: Manny Taylor MD 09/05/2017 6:43 PM EDT
[2017-09-05 18:48] LABS: AUTOMATED NEUTROPHIL # 9.5 TH/MM3 (1.8-7.7); BASOPHIL # 0.1 TH/MM3 (0-0.2); BASOPHIL % 0.5 % (0.0-2.0); EOSINOPHIL # 0.1 TH/MM3 (0-0.4); EOSINOPHIL % 1.2 % (0.0-4.0); HEMATOCRIT 44.5 % (39.0-51.0); HEMOGLOBIN 14.8 GM/DL (13.0-17.0); LYMPH % 15.2 % (9.0-44.0); LYMPHOCYTE # 1.8 TH/MM3 (1.0-4.8); MEAN CELL VOLUME 92.9 FL (80.0-100.0); MEAN CORPUSCULAR HEMOGLOBIN 30.8 PG (27.0-34.0); MEAN CORPUSCULAR HGB CONC 33.2 % (32.0-36.0); MEAN PLATELET VOLUME 8.5 FL (7.0-11.0); MONO % 4.7 % (0.0-8.0); MONOCYTE # 0.6 TH/MM3 (0-0.9); NEUT % 78.4 % (16.0-70.0); PLATELET COUNT 230 TH/MM3 (150-450); RED BLOOD COUNT 4.79 MIL/MM3 (4.50-5.90); RED CELL DISTRIBUTION WIDTH 14.5 % (11.6-17.2); WHITE BLOOD COUNT 12.1 TH/MM3 (4.0-11.0)
--- NOTE | 2017-09-05 18:53 | RADRPT ---
EXAM DATE: 09/05/2017 6:35 PM EDT AGE/SEX: 31 years / Male INDICATIONS: Pain. CLINICAL DATA: This is the patient's initial encounter. Patient reports that signs and symptoms have been present for 1 day and indicates a pain score of Nonresponsive. MEDICAL/SURGICAL HISTORY: None. None. COMPARISON: No prior exams available for comparison. FINDINGS: Bony structures are intact and in normal alignment. Joints are intact without dislocation or signifi cant arthropathy. Osseous density is normal. Soft tissues are unremarkable. No radiopaque foreign bodies seen. CONCLUSION: No acute findings. Electronically signed by: Jey Hood MD 09/05/2017 6:51 PM EDT
--- NOTE | 2017-09-05 18:57 | RADRPT ---
EXAM DATE: 09/05/2017 6:53 PM EDT AGE/SEX: 31 years / Male INDICATIONS: Possible overdose and possible seizure today. CLINICAL DATA: This is the patient's initial encounter. Patient reports that signs and symptoms have been present for 1 day and indicates a pain score of 5/10. MEDICAL/SURGICAL HISTORY: Stroke. Hepatitis C. None. RADIATION DOSE: 56.35 CTDI (mGy) [place] [facility] [place]/2014. . TECHNIQUE: CT of the head without contrast. Using automated exposure control and adjustment of the mA and/or kV according to patient size, radiation dose was kept as low as reasonably achievable to ob tain optimal diagnostic quality images. FINDINGS: Cerebrum: The ventricles are normal for age. No evidence of midline shift, mass lesion, hemorrhage or acute infarction. No extraaxial fluid collections are seen. Posterior Fossa: The cerebellum and brainstem are intact. The 4th ventricle is midline. The cerebe llopontine angle is unremarkable. Extracranial: The visualized portion of the orbits is intact. Skull: The calvaria is intact. No evidence of skull fracture. CONCLUSION: 1. No acute intracranial abnormalities. Electronically signed by: Jey Hood MD 09/05/2017 6:56 PM EDT
[2017-09-05 19:10] LABS: ALBUMIN 4.4 GM/DL (3.4-5.0); AST (GOT) 42 U/L (15-37); BICARBONATE 24.4 MEQ/L (21.0-32.0); BLOOD UREA NITROGEN 8 MG/DL (7-18); CALCIUM 8.9 MG/DL (8.5-10.1); CHLORIDE 103 MEQ/L (98-107); CREATININE 1.41 MG/DL (0.60-1.30); GLOMERULAR FILTRATION RATE 59 ML/MIN (>89); GLUCOSE,RANDOM 178 MG/DL (74-106); SODIUM (NA) 139 MEQ/L (136-145)
[2017-09-05 19:11] LABS: ALT (GPT) 50 U/L (12-78)
[2017-09-05 19:19] LABS: ALKALINE PHOSPHATASE 88 U/L (45-117); TOTAL BILIRUBIN ADULT 0.3 MG/DL (0.2-1.0); TOTAL PROTEIN 8.7 GM/DL (6.4-8.2); TROPONIN I LESS THAN 0.02 NG/ML (0.02-0.05)
[2017-09-05 19:27] LABS: ACETAMINOPHEN LESS THAN 2.0 MCG/ML (10.0-30.0)
== END 2017-09-05 20:19 | disposition home or self-care (01) ==
LOC: NEPC 17:55
DX: T40.2X1A Poisoning by other opioids, accidental (unintentional), initial encounter (principal); F10.129 Alcohol abuse with intoxication, unspecified; D72.829 Elevated white blood cell count, unspecified; R52 Pain, unspecified; Y90.8 Blood alcohol level of 240 mg/100 ml or more; I49.8 Other specified cardiac arrhythmias; Z72.0 Tobacco use; Z86.79 Personal history of other diseases of the circulatory system; Z87.09 Personal history of other diseases of the respiratory system; Z86.59 Personal history of other mental and behavioral disorders; Z86.69 Personal history of other diseases of the nervous system and sense organs
CPT/HCPCS: 70450; 71045; 73100; 80053; 80307; 82550; 83690; 83880; 84443; 84484; 85025; 99285